=== PATIENT | female | born 1955 | race Caucasian/White ===

== ENCOUNTER → 2020-08-10 11:17 | Outpatient (CLI) | payer MEDICARE, MEDICAID, SELFPAY ==
[2020-08-10 11:56] LABS: Alanine Aminotransferase 33 IU/L (<35); Albumin 4.2 g/dL (3.5-5.0); Albumin Globulin Ratio 1.2 (1.0-2.8); Alkaline Phosphatase 59 U/L (38-126); Aspartate Aminotransferase 33 IU/L (14-36); BUN Creatinine Ratio 26.9 (6-22); Bilirubin Total 0.5 mg/dL (0.2-1.3); Blood Urea Nitrogen 18 mg/dL (7-17); Calcium 9.2 mg/dL (8.4-10.2); Carbon Dioxide 28 mmol/L (22-32); Chloride 106 mmol/L (98-107); Estimated Glomerular Filt Rate > 60.0 mL/min (>60); Globulin 3.4 g/dL (1.7-4.1); Glucose 103 mg/dL (80-110); HEMOLYSIS < 15 (0-50); Potassium 4.2 mmol/L (3.4-5.1); Sodium 138 mmol/L (137-145); Total Protein 7.6 g/dL (6.3-8.2)
--- NOTE | 2020-08-10 12:18 | DI.CT.S_ITS ---
PROCEDURE: CT ABDOMEN PELVIS W CON INDICATIONS: Other specified disorders of bladder TECHNIQUE: After the administration of oral and intravenous contrast, 5 mm thick sections acquired from the diaphragms to the symphysis. 5 mm thick coronal and sagittal reformats were performed. For radiation dose reduction, the following was used: automated exposure control, adjustment of mA and/or kV according to patient size. COMPARISON: None. FINDINGS: Image quality: Excellent. ABDOMEN: Lung bases: Lung bases are clear. Heart size is normal. Tiny hiatal hernia. Solid organs: Liver is normal in size and enhancement. Coarse calcification in the central right lobe of the liver subjacent to an area of capsular retraction, potentially postsurgical or traumatic change. Gallbladder is partially decompressed. Biliary system is non-dilated. Pancreas enhances normally. Spleen is normal in size and enhancement. No adrenal nodules. Kidneys are normal in size and enhancement, without hydronephrosis. A few parapelvic cysts are seen in each kidney. No intrarenal or ureteral calcifications.. Peritoneum and bowel: Stomach, small bowel, and colon loops are normal in caliber and wall thickness. Mild sigmoid diverticulosis. The appendix is absent. No free fluid or air. Nodes and vessels: No retroperitoneal or mesenteric adenopathy. Aorta and inferior vena cava are normal in caliber. Moderate abdominal aortic atherosclerotic calcification. Miscellaneous: No ventral hernias. PELVIS: Genitourinary: There is a homogeneously mildly hyperdense ovoid smoothly marginated mass measuring 3.0 x 2.5 x 2.5 cm likely just outside the left lower anterior aspect of the urinary bladder indenting on the bladder. The bladder wall is otherwise normal thickness and there are no other masses or definite intraluminal masses. No calcifications. The uterus is normal in size, slightly heterogeneous and contains a probable right anterior fundal subserosal fibroid. Ovarian tissue appears normal. Miscellaneous: No inguinal hernias or adenopathy. Bones: No suspicious bony lesions. Bilateral L5 pars defects resulting in grade 1 anterolisthesis and moderate degenerative disc disease. No vertebral body compression fractures. IMPRESSION: 1. There is a mass in the low left anterior pelvis closely associated with the bladder wall, likely just outside the urinary bladder. Comparison with prior studies is recommended to assess for size change. 2. Urinary bladder appears otherwise normal. 3. Probable uterine fibroids. 4. Mild sigmoid diverticulosis. 5. Moderate atherosclerotic calcification. Dictated by: Carrie Melton M.D. on 08/10/2020 at 13:15 Approved by: Carrie Melton M.D. on 08/10/2020 at 13:24
== END ==
PROVIDERS: Referring Provider Urology; Visit Provider Urology
DX: N32.89 Other specified disorders of bladder (principal); K57.30 Diverticulosis of large intestine without perforation or abscess without bleeding; I70.90 Unspecified atherosclerosis
CPT/HCPCS: 36415; 74177; 80053